=== PATIENT | female | born 1990 | race Caucasian/White ===

== ENCOUNTER 2019-01-23 19:28 | Emergency (ER) | payer MEDICAID ==
[~2019-01-23] VITALS: Ht 167.6 cm; Wt 63.2 kg
[2019-01-23 19:46] VITALS: BP 125/68; PULSE 85; RESP 16; Ht 167.6 cm; Wt 63.2 kg
--- NOTE | 2019-01-24 00:48 | ERD ---
ER Documentation Chief Complaint Chief Complaint VAGINAL BLEEDING WITH CLOTS X YESTERDAY. HPI 28-year-old 6 week female with no reported past medical surgical history who presents with complaint of vaginal bleeding since yesterday. States she is having worsening bleeding which started as scant bleeding yesterday but worsened today with reported soaking 2 pads. Also stating she passed a small amount of blood clots yesterday. Also of a vague dull lower abdominal pain. States she was seen in clinic on the of this month and had a Pap smear done. Bleeding started after she had this procedure done. The time examination patient hemodynamically stable but still reporting active bleeding. ROS All systems reviewed and are negative except as per history of present illness. Medications Home Meds Active Scripts Acetaminophen* (Tylenol*) 325 Mg Tablet, 2 TAB PO Q6 PRN for PAIN AND OR ELEVATED TEMP, #20 TAB Prov:JUANA FITCH MD 01/24/19 Ibuprofen* (Motrin*) 400 Mg Tab, 400 MG PO Q6H PRN for PAIN AND OR ELEVATED TEMP, #30 TAB Prov:JUANA FITCH MD 01/24/19 Cephalexin* (Keflex*) 500 Mg Capsule, 500 MG PO BID for 7 Days, CAP Prov:EL CAMPBELL PA-C 01/24/19 Allergies Allergies: Coded Allergies: No Known Allergies (Verified Allergy, Unknown, 01/24/19) PMhx/Soc History of Surgery: No Anesthesia Reaction: No Hx Neurological Disorder: No Hx Respiratory Disorders: No Hx Cardiac Disorders: No Hx Psychiatric Problems: No Hx Miscellaneous Medical Probl: No Hx Alcohol Use: No Hx Substance Use: No Hx Tobacco Use: No Smoking Status: Never smoker FmHx Family History: No diabetes, No coronary disease, No other Physical Exam Vitals Vital Signs Date Temp Pulse Resp B/P (MAP) Pulse Ox O2 O2 Flow FiO2 Time Delivery Rate 01/23/19 98.6 85 16 125/68 98 19:46 (87) Physical Exam I have reviewed the triage vital signs. Const: Well nourished, well developed, appears stated age Eyes: PERRL, no conjunctival injection HENT: NCAT, Neck supple without meningismus CV: RRR, Warm, well-perfused extremities RESP: CTAB, Unlabored respiratory effort GI: soft, tenderness to palpation to R iliac, no rebound or guarding MSK: No gross deformities appreciated Skin: Warm, dry. No rashes Neuro: grossly non focal Psych: Appropriate mood and affect. Result Diagram: 01/23/19 7042 Results 24 hrs Laboratory Tests Test 01/23/19 23:35 01/23/19 23:55 Urine Color STRAW Urine Clarity SLIGHTLY CLOUDY Urine pH 6.0 Urine Specific [place] 1.003 Urine Ketones NEGATIVE mg/dL Urine Nitrite NEGATIVE mg/dL Urine Bilirubin NEGATIVE mg/dL Urine Urobilinogen NEGATIVE mg/dL Urine Leukocyte Esterase 2+ Ariella/ul Urine Microscopic RBC 4 /HPF Urine Microscopic WBC 33 /HPF Urine Squamous Epithelial Cells FEW /HPF Urine Bacteria FEW /HPF Urine Hemoglobin 3+ mg/dL Urine Glucose NEGATIVE mg/dL Urine Total Protein NEGATIVE mg/dl White Blood Count 8.7 10^3/ul Red Blood Count 4.81 10^6/ul Hemoglobin 13.9 g/dl Hematocrit 42.5 % Mean Corpuscular Volume 88.4 fl Mean Corpuscular Hemoglobin 28.9 pg Mean Corpuscular Hemoglobin Concent 32.7 g/dl Red Cell Distribution Width 12.4 % Platelet Count 312 10^3/UL Mean Platelet Volume 9.7 fl Immature Granulocytes % 0.100 % Neutrophils % 57.7 % Lymphocytes % 26.7 % Monocytes % 7.1 % Eosinophils % 8.1 % Basophils % 0.3 % Nucleated Red Blood Cells % 0.0 /100WBC Immature Granulocytes # 0.010 10^3/ul Neutrophils # 5.0 10^3/ul Lymphocytes # 2.3 10^3/ul Monocytes # 0.6 10^3/ul Eosinophils # 0.7 10^3/ul Basophils # 0.0 10^3/ul Nucleated Red Blood Cells # 0.0 10^3/ul Beta HCG, Quantitative 8378.7 mIU/ml Procedures/MDM 28 year old patient presents with 2 days vaginal bleeding. Patient is approx 6 weeks by LMP. Has had one days vaginal bleeding with passage of clots most likely from a threatened . Patient otherwise in her normal state of health and non-septic in appearance hemodynamically stable. Pelvic examination declined at the time of evaluation. Informed patient that she most likely will require pelvic examination on return to the ED for reexamination. ED course: Plan CBC, UA, bHCG, Type&Screen. Bhcg 8378 H/H normal range Ultrasound 6-week size , yolk sac and gestational sac evident, no cardiac activity identified (6 wk ) UA with evidence of UTI, will treat with keflex Patient advised to return to emergency room 8-12 hours for reevaluation or if has worsening pelvic abdominal pain or worsening bleeding to return to ED immediately Will discharge home with return precautions and instruction for prompt OBGYN follow up. DISPOSITION PLAN: We discussed follow up with the patient's primary care doctor within 24 to 48 hours. Patient counseled regarding my diagnostic impression and care plan. Prior to discharge all questions answered. Pt agrees with treatment plan and understands strict return precautions. Precautionary instructions provided including instructions to return to the ER if not improving or for any worsening or changing symptoms or concerns. Disclaimer: Inadvertent spelling and grammatical errors are likely due to EHR/dictation software use and do not reflect on the overall quality of patient care. Also, please note that the electronic time recorded on this note does not necessarily reflect the actual time of the patient encounter. Departure Diagnosis: Primary Impression: Vaginal bleeding Additional Impression: Threatened Condition: EL Galvez PA-C Jan 24, 2019 00:48
[2019-01-24] MEDS ORDERED: CEPH-443 PO (00:53)
[2019-01-24] MEDS ORDERED: IBUP-1561 PO (21:48)
[2019-01-24] MEDS ORDERED: ACET325T33 PO (21:48)
== END 2019-01-24 02:40 | disposition home or self-care (01) ==
LOC: FTE 19:28
DX: O20.0 Threatened abortion (principal); Z3A.01 Less than 8 weeks gestation of pregnancy
CPT/HCPCS: 36415; 76801; 76817; 81001; 84702; 85025; 86900; 86901; Z7502

== ENCOUNTER 2019-01-24 19:22 | Emergency (ER) | payer MEDICAID ==
[~2019-01-24] VITALS: Ht 157.5 cm; Wt 62.8 kg
[~2019-01-24 19:22] MED LIST: CEPH-443 PO
[2019-01-24 19:47] VITALS: Ht 157.5 cm; Wt 62.8 kg
--- NOTE | 2019-01-24 21:04 | ERD ---
ER Documentation Chief Complaint Chief Complaint here yesterday; vag bleed; more pain; 7 weeks preg HPI 28-year-old female G2, P1 with EGA 6 weeks by LMP 11/18/2018 and ultrasound performed yesterday 01/23/2019; presents to the emergency department, complaining of sudden onset of severe, cramping pelvic pain that started today approximately at 3:30 PM, associated with heavy vaginal bleeding and passing clots. ROS All systems reviewed and are negative except as per history of present illness. Medications Home Meds Active Scripts Acetaminophen* (Tylenol*) 325 Mg Tablet, 2 TAB PO Q6 PRN for PAIN AND OR ELEVATED TEMP, #20 TAB Prov:JUANA FITCH MD 01/24/19 Ibuprofen* (Motrin*) 400 Mg Tab, 400 MG PO Q6H PRN for PAIN AND OR ELEVATED TEMP, #30 TAB Prov:JUANA FITCH MD 01/24/19 Cephalexin* (Keflex*) 500 Mg Capsule, 500 MG PO BID for 7 Days, CAP Prov:EL CAMPBELL PA-C 01/24/19 Allergies Allergies: Coded Allergies: No Known Allergies (Verified Allergy, Unknown, 01/24/19) PMhx/Soc History of Surgery: No Anesthesia Reaction: No Hx Neurological Disorder: No Hx Respiratory Disorders: No Hx Cardiac Disorders: No Hx Psychiatric Problems: No Hx Miscellaneous Medical Probl: No Hx Alcohol Use: No Hx Substance Use: No Hx Tobacco Use: No Smoking Status: Never smoker FmHx Family History: No diabetes, No coronary disease Physical Exam Vitals Vital Signs Date Temp Pulse Resp B/P (MAP) Pulse Ox O2 O2 Flow FiO2 Time Delivery Rate 01/24/19 98.6 76 18 106/70 100 Room Air 22:05 (82) 01/24/19 99.0 128 22 132/77 100 19:47 (95) Physical Exam Const: No acute distress Head: Atraumatic Eyes: Normal Conjunctiva ENT: Normal External Ears, Nose and Mouth. Neck: Full range of motion. No meningismus. Resp: Clear to auscultation bilaterally Cardio: Regular rate and rhythm, no murmurs Abd: Soft, non tender, non distended. Normal bowel sounds. : External genitalia with evident vaginal bleeding, speculum exam revealed products of conception in the vaginal canal which were manually removed with a ring forceps. Os closed with minimal bleeding. Skin: No petechiae or rashes Back: No midline or flank tenderness Ext: No cyanosis, or edema Neur: Awake and alert Psych: Normal Mood and Affect Result Diagram: 01/24/192140 Results 24 hrs Laboratory Tests Test 01/24/19 21:41 White Blood Count 11.7 10^3/ul Red Blood Count 4.93 10^6/ul Hemoglobin 14.4 g/dl Hematocrit 43.4 % Mean Corpuscular Volume 88.0 fl Mean Corpuscular Hemoglobin 29.2 pg Mean Corpuscular Hemoglobin Concent 33.2 g/dl Red Cell Distribution Width 12.5 % Platelet Count 325 10^3/UL Mean Platelet Volume 9.8 fl Immature Granulocytes % 0.400 % Neutrophils % 76.0 % Lymphocytes % 14.1 % Monocytes % 5.5 % Eosinophils % 3.6 % Basophils % 0.4 % Nucleated Red Blood Cells % 0.0 /100WBC Immature Granulocytes # 0.050 10^3/ul Neutrophils # 8.9 10^3/ul Lymphocytes # 1.7 10^3/ul Monocytes # 0.6 10^3/ul Eosinophils # 0.4 10^3/ul Basophils # 0.1 10^3/ul Nucleated Red Blood Cells # 0.0 10^3/ul Beta HCG, Quantitative 6744.4 mIU/ml Current Medications Medications Dose Sig/Randell Start Time Status Last (Trade) Ordered Route PRN Stop Time Admin Dose Reason Admin Ketorolac 15 mg ONCE STAT 01/24/19 DC 01/24/19 Tromethamine IV 21:31 21:37 (Toradol) 01/24/19 21:33 Sodium 500 ml @ Q1H ONCE 01/24/19 DC 01/24/19 Chloride 500 mls/hr IV 22:00 21:36 01/24/19 22:18 Procedures/MDM Vital signs stable, Physical exam unremarkable. Differential diagnosis include but not limited to: UTI, threatening , incomplete versus complete , ectopic , physiologic implantation bleeding, molar . Physical examination and clinical presentation most likely consistent with complete spontaneous . During the ED course the patient remained hemodynamically stable and symptoms improved after the POC's were manually removed from the vaginal canal. Results and clinical impression discussed with patient who agrees with management. The patient is stable to be treated outpatient and will be discharged home with close monitoring and follow-up in 2 days with her primary physician. Bed rest and pelvic rest recommended until further medical evaluation. The patient was instructed regarding the outcomes and the potential complications like severe bleeding. If the patient presents severe bleeding or pain, she was instructed to return to the hospital immediately. Disclaimer: Inadvertent spelling and grammatical errors are likely due to EHR/dictation software use and do not reflect on the overall quality of patient care. Also, please note that the electronic time recorded on this note does not necessarily reflect the actual time of the patient encounter. Departure Diagnosis: Primary Impression: Complete spontaneous Condition: Stable Additional Instructions: Thank you very much for allowing us to participate in your care. Your health and safety is our top priority at [facility]. The evaluation in the emergency department has been done to rule out an acute emergency, therefore, chronic conditions like malignancy or other diseases have not been evaluated; therefore, you need to follow up with a primary care provider in the next 48h. If symptoms persist, worsen or new symptoms develop, then patient should return to the ED immediately. Call your primary care doctor TOMORROW for an appointment during the next 2-4 days and bring all the information provided. Have prescriptions filled and follow precisely the directions on the label. If the symptoms get worse and your provider is unavailable, return to the Emergency Department immediately. JUANA FITCH MD Jan 24, 2019 21:04
[2019-01-24] MEDS ORDERED: KETOROLAC 15 MG INJ IV STA (21:31)
[2019-01-24] MEDS ORDERED: IBUP-1561 PO (21:48)
[2019-01-24] MEDS ORDERED: ACET325T33 PO (21:48)
[2019-01-24] MEDS ORDERED: SOD CHLORIDE 0.9% 500 ML IV ONE (22:00)
[2019-01-24 22:05] VITALS: BP 106/70; PULSE 76; RESP 18
== END 2019-01-24 22:18 | disposition home or self-care (01) ==
LOC: FTE 19:22
DX: O03.9 Complete or unspecified spontaneous abortion without complication (principal); R10.2 Pelvic and perineal pain
CPT/HCPCS: 84702; 85025; J1885; J7040; 96374